=== PATIENT | male | born 1990 | race African-American/Black ===

== ENCOUNTER 2024-08-19 13:06 | Emergency (ER) | payer MEDICAID ==
[~2024-08-19] VITALS: Ht 180.3 cm; Wt 91.0 kg
[2024-08-19 13:13] VITALS: O2SAT 99
[2024-08-19] MEDS ORDERED: LIDOCAINE HCL 1% 20ML VIAL INFIL ONE (14:15)
[2024-08-19] MEDS ORDERED: ACET-2708 MT (15:08)
[2024-08-19 15:45] VITALS: BP 134/85; PULSE 48; RESP 18; TEMP 36.94740; O2SAT 100
[2024-08-19] MEDS: BACITRACIN ZINC OINT UDPKT TOP ONE (15:47)
[2024-08-19] MEDS: TETANUS, DIPHTHERIA, PERTUSSIS VAC/PF 0.5ML (>10YR OLD) IM ONE (15:48)
== END 2024-08-19 15:55 | disposition home or self-care (01) ==
LOC: ER 13:22
DX: S61.012A Laceration without foreign body of left thumb without damage to nail, initial encounter (principal); X58.XXXA Exposure to other specified factors, initial encounter; Y93.89 Activity, other specified; Y92.89 Other specified places as the place of occurrence of the external cause; Y99.8 Other external cause status
CPT/HCPCS: 12002; 99282; J3490; Z7610